=== PATIENT | male | born 1975 | race Caucasian/White ===

== ENCOUNTER 2022-11-03 11:45 | Emergency (ER) | payer OTHER ==
[2022-11-03 12:12] VITALS: RESP 18; BMI 29.4
[2022-11-03 13:10] LABS: BASO % 1.1 % (0-2.0); EOS % 3.6 % (0-4.5); HEMATOCRIT 44.8 % (35.4-49); HEMOGLOBIN 15.1 GM/dL (11.7-16.9); LYMPH % 30.1 % (8-40); MCH 29.1 pg (25.7-33.7); MCHC 33.8 g/dl (32.0-35.9); MEAN CELL VOLUME 86.3 fl (80-96); MEAN PLT VOLUME 9.5 fl (7.5-11.1); NEUT % 59.2 % (42.8-82.8); PLATELET COUNT 217 10^3/uL (134-434); RBC 5.19 M/mm3 (4.00-5.60); RDW 13.3 % (11.9-15.9); VENOUS BASE EXCESS 2.1 mmol/L (-2-2); VENOUS PCO2 47.1 mmHg (38-52); VENOUS PH 7.39 (7.310-7.410)
[2022-11-03 13:16] LABS: INR 1.12 (0.83-1.09)
[2022-11-03 13:19] LABS: ACTIVATED PTT 30.2 SECONDS (25.2-36.5)
[2022-11-03 14:01] LABS: POTASSIUM 4.4 mmol/L (3.5-5.1)
[2022-11-03 14:04] LABS: ALBUMIN 3.3 g/dl (3.4-5.0); BLOOD UREA NITROGEN 13.1 mg/dL (7-18); MAGNESIUM 1.9 mg/dL (1.8-2.4)
[2022-11-03 14:06] LABS: CREATININE 0.8 mg/dL (0.55-1.3)
[2022-11-03 14:09] LABS: BILIRUBIN,TOTAL 0.5 mg/dL (0.2-1); TOT PROT 6.8 g/dl (6.4-8.2)
[2022-11-03] MEDS ORDERED: SODIUM CHLORIDE 0.9% 500 ML INFUS.BAG IV ONE (14:24)
[2022-11-03 15:00] LABS: ARTERIAL BLD GAS O2 SATURATION 94.1 % (95-98); ARTERIAL BLOOD GAS BASE EXCESS -0.2 mmol/L (-2-2); ARTERIAL BLOOD GAS PO2 70.2 mmHg (80-100); ARTERIAL BLOOD GAS pH 7.398 (7.350-7.450)
[2022-11-03] MEDS ORDERED: IBUPROFEN 600 MG TABLET (FP) PO ONE ×2 (16:05→16:38)
[2022-11-03] MEDS ORDERED: ACETAMINOPHEN 325 MG TABLET (FP) PO ONE (16:05)
[2022-11-03] MEDS ORDERED: ACETAMINOPHEN 325 MG TABLET (FP) ONE (16:39)
[2022-11-03 18:02] VITALS: BP 123/73; PULSE 72; TEMP 98.4
== END 2022-11-03 18:10 | disposition home or self-care (01) ==
LOC: JER 11:45
DX: H53.8 Other visual disturbances (principal); R51.9 Headache, unspecified; E11.65 Type 2 diabetes mellitus with hyperglycemia; Z20.822 Contact with and (suspected) exposure to COVID-19
CPT/HCPCS: 0241U-QW; 36415; 36600; 70450-TC; 71045-TC-FY; 80053; 80061; 82010; 82375; 82550; 82803; 82962; 83036; 83735; 84484; 85025; 85610; 85730; 86850; 86900; 86901; 93005; 93010; 99285-25